=== PATIENT | female | born 1965 | race American Indian/Alaskan Native ===

== ENCOUNTER 2019-03-10 15:44 | Outpatient (CLI) | payer OTHER ==
--- NOTE | 2019-03-11 00:11 | XRay Report ---
PROCEDURE: LUMBAR SPINE, 2 VIEWS TECHNIQUE: Lumbar spine radiographs, frontal and lateral views. CPT 11294 HISTORY: Back pain COMPARISONS: None . FINDINGS: Alignment: Normal . Vertebral body heights/Disk spaces: There is narrowing of the disc space at L5-S1. . Fracture(s): None . Facets: There is bilateral facet hypertrophy at L5-S1. . Bone mineralization: Normal. There are bilateral laminectomy defects at L5. . IMPRESSION: There are no fractures or malalignments. There is narrowing of the disc space at L5-S1. . There is bilateral facet hypertrophy at L5-S1. . There are bilateral laminectomy defects at L5. . This document is electronically signed by Porfirio Patel MD., March 11 2019 12:09:40 AM ET
--- NOTE | 2019-03-11 07:53 | XRay Report ---
PROCEDURE: XR KNEE BILAT 1-2V TECHNIQUE: Bilateral knee radiographs, 2 views each HISTORY: PAIN IN BILATERAL KNEE; DISABILITY COMPARISONS: None FINDINGS: [id number]-[id number] osteoarthrosis in the right greater than left knee, most significant in the medial c ompartments. No joint effusions identified. No periarticular fractures. Tibial plateau hypertrophy ve rsus intra-articular bodies. IMPRESSION: Mild to moderate osteoarthrosis in the right greater than left knee with possible intra-articular bod ies. No joint effusions identified. This document is electronically signed by Jason Walton MD., March 11 2019 07:52:02 AM ET
== END 2019-03-10 15:45 | disposition home or self-care (01) ==
LOC: XRAY 15:44
PROVIDERS: ATTEND Internal Medicine
DX: Z02.71 Encounter for disability determination (principal); M17.11 Unilateral primary osteoarthritis, right knee; M48.07 Spinal stenosis, lumbosacral region; M89.38 Hypertrophy of bone, other site
CPT/HCPCS: 72100